=== PATIENT | female | born 1945 | race African-American/Black ===

== ENCOUNTER → 2019-08-26 | Outpatient (CLI) | payer OTHER, MEDICARE ==
[~2019-08-26] MED LIST: ASPIR 8181 MG PO; BENICAR40 MG PO; CENTRUM SILVER1 EAC4 PO; COREG25 MG PO; HUMALOG100 UNIT/1 SUBQ; HYDRALAZINE 2525 MG PO; LANTUS100 UNIT/M SUBQ; LASIX 40 MG TAB40 M2 PO; LEVAQUIN 750 M750 MG PO; LEVOTHYROXIN0.125 M1 PO; LIPITOR40 MG PO; LISINOPRIL20 MG PO; LMTHF-PYRIDOXI1 EACH PO; NORVASC5 MG PO; TOPROL XL50 MG PO; TORSEMIDE10 MG PO; VENTOLIN HFA 1818 GM INH; ZOCOR20 MG PO
--- NOTE | 2019-08-26 09:54 | 2DMMODE ---
[facility] [place] [address] 2 D/M-MODE ECHOCARDIOGRAM Name: MORELIABRITNI HARRIS Room #: REG [facility]#: [id number] Admission: 08/26/19 Attend Phys: Americo Sweet MD Discharge: Date of : 43 Report #: [id number] THIS REPORT FOR: //name// APPROVED REPORT Study performed: 08/26/2019 08:53:59 EXAM: Comprehensive 2D, Doppler, and color-flow Echocardiogram Patient Location: Out-Patient Status: routine BSA: 2.29 HR: 67 bpm BP: 158/58 mmHg Rhythm: NSR Other Information Study Quality: Adequate Indications CAD Hx; DM, HTN, HLP 2D Dimensions RVDd: 39.30 mm IVSd: 10.30 (7-11mm) LVOT Diam: 20.46 (18-24mm) LVDd: 47.05 mm PWd: 9.63 (7-11mm) Ascending Ao: 41.33 (22-36mm) LVDs: 29.66 (25-40mm) Aortic Root: 37.05 mm Volumes Left Atrial Volume (Systole) Single Plane 4CH: 60.94 mL Single Plane 2CH: 52.64 mL LA ESV Index: 27.00 mL/m2 Aortic Valve AI Vmax: 3.92 m/s AI [place]: 2.41 m/s2 AI PHT: 472.25 ms Mitral Valve E/A Ratio: 1.4 MV Decel. Time: 177.82 ms MV E Max Jc.: 1.28 m/s [facility] [address] [place] [address] 2 D/M-MODE ECHOCARDIOGRAM Name: MORELIABRITNI SHABAZZITA Room #: REG CL [facility]#: [id number] Admission: 08/26/19 Attend Phys: Americo Sweet MD Discharge: Date of : 43 Report #: [id number] MV A Jc.: 0.91 m/s MV PHT: 51.57 ms IVRT: 41.52 ms Pulmonary Valve PV Peak Jc.: 0.97 m/s PV Peak Gr.: 3.79 mmHg Pulmonary Vein P Vein S: 0.60 m/s P Vein A: 0.25 m/s P Vein D: 0.71 m/s P Vein A Dur.: 106.1 msec P Vein S/D Ratio: 0.85 Left Ventricle The left ventricle is normal size. There is normal LV segmental wall motion. There is normal left ventricular wall thickness. The left ventricular systolic function is normal. LVEF is 55-60%. Moderate diastolic dysfunction is present (pseudonormal filling). Right Ventricle The right ventricle is normal size. The right ventricular systolic function is normal. Atria The left atrium size is normal. The right atrium size is normal. Aortic Valve The aortic valve is normal in structure. Mild to moderate aortic regurgitation. There is no aortic valvular stenosis. Mitral Valve The mitral valve is normal in structure. Mild mitral regurgitation. No evidence of mitral valve stenosis. Tricuspid Valve The tricuspid valve is normal in structure. Trace tricuspid regurgitation. Unable to assess PA pressure. Pulmonic Valve The pulmonary valve is normal in structure. Trace pulmonic regurgitation. Great Vessels The aortic root is normal in size. Ascending aorta is dilated at 4.1 cm. IVC is not well visualized. [facility] [place] [address] 2 D/M-MODE ECHOCARDIOGRAM Name: BRITNI THIBODEAUX Room #: REG [facility]#: [id number] Admission: 08/26/19 Attend Phys: Americo Sweet MD Discharge: Date of : 43 Report #: [id number] Pericardium There is no pericardial effusion. <Conclusion> The left ventricle is normal size. There is normal left ventricular wall thickness. The left ventricular systolic function is normal. Moderate diastolic dysfunction is present (pseudonormal filling). The right ventricle is normal size. The left atrium size is normal. Mild to moderate aortic regurgitation. Mild mitral regurgitation. Trace tricuspid regurgitation. Ascending aorta is dilated at 4.1 cm. <ELECTRONICALLY SIGNED> By: Americo Sweet MD 08/26/19 [phone] [id number] Americo Sweet MD /NANCY
== END ==
LOC: CV 07-21 12:38
DX: I08.0 Rheumatic disorders of both mitral and aortic valves (principal); I25.10 Atherosclerotic heart disease of native coronary artery without angina pectoris

== ENCOUNTER 2019-10-26 09:55 | Emergency (ER) | payer OTHER, MEDICARE ==
[~2019-10-26] VITALS: Ht 167.6 cm; Wt 124.7 kg
[~2019-10-26 09:55] MED LIST changes: -BENICAR40 MG PO; -HYDRALAZINE 2525 MG PO; -LEVAQUIN 750 M750 MG PO; -LIPITOR40 MG PO; -TOPROL XL50 MG PO; -TORSEMIDE10 MG PO; -VENTOLIN HFA 1818 GM INH
[2019-10-26] MEDS ORDERED: LIPITOR40 MG PO (10:14)
[2019-10-26] MEDS ORDERED: BENICAR40 MG PO (10:16)
[2019-10-26] MEDS ORDERED: HYDRALAZINE 2525 MG PO (10:16)
[2019-10-26] MEDS ORDERED: TOPROL XL50 MG PO (10:17)
[2019-10-26] MEDS ORDERED: TORSEMIDE10 MG PO (10:18)
[2019-10-26 11:15] LABS: ABSOLUTE NEUTROPHILS 6.7 thou/uL (1.4-8.2); BASOPHILS 0.7 % (0.0-2.0); EOSINOPHILS 3.2 % (0.0-3.0); HEMATOCRIT 34.5 % (37.0-47.0); HEMOGLOBIN 11.3 gm/dL (12.0-15.0); LYMPHOCYTES 12.2 % (24.0-44.0); MCH 28.1 pg (26.0-34.0); MCHC 32.7 g/dL (28.0-37.0); MONOCYTES 11.8 % (1.0-8.0); PLATELET COUNT 287 thou/uL (150-400); POLYS 72.1 % (36.0-66.0); RBC 4.01 mil/uL (4.20-5.00); RDW 14.2 % (10.5-14.5); WBC 9.3 thou/uL (4.0-11.0)
[2019-10-26 11:23] LABS: CALCIUM 9.5 mg/dL (8.5-10.1); CREATININE 1.5 mg/dL (0.6-1.0); POTASSIUM 4.3 mmol/L (3.5-5.1)
[2019-10-26] MEDS ORDERED: VENTOLIN HFA 1818 GM INH (12:55)
[2019-10-26] MEDS ORDERED: LEVAQUIN 750 M750 MG PO (12:55)
[2019-10-26 13:25] VITALS: BP 142/60
== END 2019-10-26 13:28 | disposition home or self-care (01) ==
LOC: ER 09:55
PROVIDERS: Emergency Medicine
DX: J18.9 Pneumonia, unspecified organism (principal); I10 Essential (primary) hypertension; E11.9 Type 2 diabetes mellitus without complications; E78.00 Pure hypercholesterolemia, unspecified; E03.9 Hypothyroidism, unspecified; Z79.899 Other long term (current) drug therapy; Z79.4 Long term (current) use of insulin; Z79.82 Long term (current) use of aspirin; Z90.710 Acquired absence of both cervix and uterus